=== PATIENT | female | born 1925 | race Caucasian/White ===

== ENCOUNTER 2016-09-21 16:54 | Emergency (ER) | payer MEDICARE, BC ==
[~2016-09-21] VITALS: Ht 160 cm; Wt 70.0 kg
[~2016-09-21 16:54] MED LIST: ALPR0.5T3 PO; AMLO5 PO; ASPI81 PO; OFLO.3%A RIGHT EAR; OYST500T77 PO; PRAV20TA67 PO; TAB-TAB PO; TIMO0.5S29 EACH EYE
[2016-09-21 16:57] VITALS: BP 179/91; PULSE 44; RESP 24; TEMP 97.8; O2SAT 90
[2016-09-21 17:49] LABS: AUTOMATED NEUTROPHIL # 4.4 TH/MM3 (1.8-7.7); BASOPHIL % 0.4 % (0.0-2.0); EOSINOPHIL # 0.2 TH/MM3 (0-0.4); EOSINOPHIL % 2.3 % (0.0-4.0); HEMATOCRIT 39.4 % (35.0-46.0); HEMO FLAGS DIFF FINAL; LYMPH % 17.7 % (9.0-44.0); LYMPHOCYTE # 1.2 TH/MM3 (1.0-4.8); MEAN CORPUSCULAR HEMOGLOBIN 33.1 PG (27.0-34.0); MEAN CORPUSCULAR HGB CONC 33.7 % (32.0-36.0); MONO % 12.1 % (0.0-8.0); NEUT % 67.5 % (16.0-70.0); PLATELET COUNT 216 TH/MM3 (150-450); RED BLOOD COUNT 4.02 MIL/MM3 (4.00-5.30); RED CELL DISTRIBUTION WIDTH 12.5 % (11.6-17.2); WHITE BLOOD COUNT 6.5 TH/MM3 (4.0-11.0)
[2016-09-21 18:05] LABS: ANION GAP 8 MEQ/L (5-15); BICARBONATE 21.9 MEQ/L (21.0-32.0); BLOOD UREA NITROGEN 21 MG/DL (7-18); CHLORIDE 107 MEQ/L (98-107); GLOMERULAR FILTRATION RATE 74 ML/MIN (>89); POTASSIUM 4.1 MEQ/L (3.5-5.1); SODIUM (NA) 137 MEQ/L (136-145)
--- NOTE | 2016-09-21 18:06 | RADRPT ---
EXAM DATE/TIME: 09/21/2016 17:22 [facility] COMPARISON: No previous studies available for comparison. INDICATIONS : Chest pains. MEDICAL HISTORY : Carcinoma, breast. SURGICAL HISTORY : None. ENCOUNTER: Initial ACUITY: 1 week PAIN SCORE: 4/10 LOCATION: Bilateral chest FINDINGS: A single view of the chest demonstrates linear density at the right upper lung related to either scar ring, atelectasis, or thickening of the minor fissure. The lungs are otherwise clear. There is increa sed density over the left base likely related to overlying soft tissues. The heart size is normal. Th ere is a levocurvature of the thoracic spine. CONCLUSION: No acute disease. Brayden Mchugh MD on September 21, 2016 at 18:03 Board Certified Radiologist. This report was verified electronically.
[2016-09-21 18:21] LABS: CREATINE KINASE 71 U/L (26-192)
[2016-09-21] MEDS ORDERED: LORazepam 2 MG/ML VIAL IV PUSH ONE (19:30)
--- NOTE | 2016-09-21 19:31 | PD ---
HPI Chief Complaint: Cardiac Complaint Time Seen by Provider: 19:15 Travel History International Travel<30 days: No Contact w/Intl Traveler<30days: No Traveled to known affect area: No History of Present Illness HPI This is an 89-year-old female with history of atrial fibrillation on xarelto, diltiazem and metoprolol, hypertension, anxiety who presents for evaluation of dyspnea and chest pressure. She reports over the past several months she's been feeling shortness of breath. The shortness of breath is not necessarily reproduced with exertion, she reports that, out of nowhere. In addition she has been having intermittent substernal chest pressure for the past several months. She didn't have an episode today. There are no obvious aggravating or relieving factors for this chest pressure. The pressure does not radiate into the back or into the neck or into the arms. Symptoms have persisted which prompted evaluation today. She was also concerned because her blood pressure has been elevated. Her primary care physician is Dr. velarde. She reports that she saw Dr. Jaimes the delivery rep recently who told her that her dyspnea is not secondary to a pulmonary issue. In addition she reports that she saw Dr. Barnes in the summer of 2016 and believes that she had an echocardiogram and nuclear medicine study which she does not know the results of. She has no other complaints at this time. PFSH Past Medical History Arthritis: Yes Asthma: No Blood Disorders: No Anxiety: Yes Depression: No Heart Rhythm Problems: Yes Cancer: Yes (Breast) Cardiovascular Problems: No High Cholesterol: Yes Chemotherapy: No Congestive Heart Failure: No COPD: No Diabetes: No Diminished Hearing: Yes ([place]) Endocrine: No Glaucoma: Yes Genitourinary: Yes (HEP C ) Hepatitis: Yes (C) Hypertension: Yes Immune Disorder: No Musculoskeletal: No Neurologic: No Psychiatric: No Reproductive: No Respiratory: Yes Radiation Therapy: No Sleep Apnea: No Thyroid Disease: No Menopausal: Yes Past Surgical History Body Medical Devices: LEFT BREAST IMPLANT Other Surgery: Yes (Mastectomy, knee replacement) Social History Alcohol Use: Yes (Daily) Tobacco Use: No Substance Use: No Allergies-Medications (Allergen,Severity, Reaction): Coded Allergies: Sulfa (Verified Allergy, Severe, DYSPNEA, SWELLING, 09/08/15) Reported Meds & Prescriptions Reported Meds & Active Scripts Active Floxin (Ofloxacin) 0.3 % Soln 10 Drop RIGHT EAR DAILY 7 Days Reported Losartan (Losartan Potassium) 25 Mg Tab 25 Mg PO DAILY Sertraline (Sertraline HCl) 25 Mg Tab 25 Mg PO DAILY Vitamin D (Cholecalciferol) 400 Unit Cap 600 Mg Vitamin D (Cholecalciferol) 400 Unit/Ml Drops 400 Units PO DAILY Centrum Silver (Multiple Vitamins W/ Minerals) 1 Tab 1 Tab PO DAILY Metoprolol Succinate ER 24 HR (Metoprolol Succinate) 25 Mg Tab 25 Mg PO DAILY Lovastatin 20 Mg Tab 20 Mg PO DAILY Xarelto (Rivaroxaban) 20 Mg Tab 20 Mg PO DAILY Alprazolam 0.25 Mg Tab 0.25 Mg PO Q6H PRN Timolol Maleate 0.5 % Elenita 1 Drop EACH EYE DAILY Alprazolam 0.5 Mg Tab 0.5 Mg PO BID PRN Pravachol (Pravastatin Sodium) 20 Mg Tab 20 Mg PO DAILY Norvasc (Amlodipine Besylate) 5 Mg Tab 5 Mg PO DAILY Multivitamin (Multivitamins) 1 Tab Tab 1 Tab PO DAILY Calcium 500 Mg Tab 600 Mg PO DAILY Aspirin 81 Mg Tab 81 Mg PO DAILY Review of Systems Except as stated in HPI: all other systems reviewed are Neg Physical Exam Narrative GENERAL: Well-developed well-nourished female in no acute distress SKIN: Warm and dry. HEAD: Atraumatic. Normocephalic. EYES: Pupils equal and round. No scleral icterus. No injection or drainage. ENT: No nasal bleeding or discharge. Mucous membranes pink and moist. NECK: Trachea midline. No JVD. CARDIOVASCULAR: Regular rate and rhythm. No murmur appreciated. RESPIRATORY: No accessory muscle use. Clear to auscultation. Breath sounds equal bilaterally. GASTROINTESTINAL: Abdomen soft, non-tender, nondistended. Hepatic and splenic margins not palpable. MUSCULOSKELETAL: No obvious deformities.No edema. NEUROLOGICAL: Awake and alert. No obvious cranial nerve deficits. Motor grossly within normal limits. Normal speech. Data Data Last Documented VS Vital Signs Date Time Temp Pulse Resp B/P Pulse Ox O2 Delivery O2 Flow Rate FiO2 09/21/16 19:37 76 20 214/85 93 Room Air 09/21/16 16:57 97.8 Orders Electrocardiogram (09/21/16 17:12) Complete Blood Count With Diff (09/21/16 17:12) Basic Metabolic Panel (Bmp) (09/21/16 17:12) Ckmb (Isoenzyme) Profile (09/21/16 17:12) Troponin I (09/21/16 17:12) Chest, Single Ap (09/21/16 17:12) Iv Access Insert/Monitor (09/21/16 17:12) Ecg Monitoring (09/21/16 17:12) Oxygen Administration (09/21/16 17:12) Oximetry (09/21/16 17:12) B-Type Natriuretic Peptide (09/21/16 19:25) Ct Pulmonary Angiogram (09/21/16 19:25) Lorazepam Inj (Ativan Inj) (09/21/16 19:30) Hydralazine Inj (Apresoline Inj) (09/21/16 20:00) Iohexol 350 Inj (Omnipaque 350 Inj) (09/21/16 20:13) Labs Laboratory Tests Test 09/21/16 17:10 White Blood Count 6.5 TH/MM3 Red Blood Count 4.02 MIL/MM3 Hemoglobin 13.3 GM/DL Hematocrit 39.4 % Mean Corpuscular Volume 98.0 FL Mean Corpuscular Hemoglobin 33.1 PG Mean Corpuscular Hemoglobin 33.7 % Concent Red Cell Distribution Width 12.5 % Platelet Count 216 TH/MM3 Mean Platelet Volume 8.2 FL Neutrophils (%) (Auto) 67.5 % Lymphocytes (%) (Auto) 17.7 % Monocytes (%) (Auto) 12.1 % Eosinophils (%) (Auto) 2.3 % Basophils (%) (Auto) 0.4 % Neutrophils # (Auto) 4.4 TH/MM3 Lymphocytes # (Auto) 1.2 TH/MM3 Monocytes # (Auto) 0.8 TH/MM3 Eosinophils # (Auto) 0.2 TH/MM3 Basophils # (Auto) 0.0 TH/MM3 CBC Comment DIFF FINAL Differential Comment Sodium Level 137 MEQ/L Potassium Level 4.1 MEQ/L Chloride Level 107 MEQ/L Carbon Dioxide Level 21.9 MEQ/L Anion Gap 8 MEQ/L Blood Urea Nitrogen 21 MG/DL Creatinine 0.74 MG/DL Estimat Glomerular Filtration 74 ML/MIN Rate Random Glucose 105 MG/DL Calcium Level 8.8 MG/DL Total Creatine Kinase 71 U/L Troponin I LESS THAN 0.02 NG/ML B-Type Natriuretic Peptide 247 PG/ML MDM Medical Decision Making Medical Screen Exam Complete: Yes Emergency Medical Condition: Yes Medical Record Reviewed: Yes Interpretation(s) EKG sinus rhythm with PVCs CT pulmonary angiogram CONCLUSION: 1. No pulmonary loss. 2. Right upper lobe bronchiectasis. 3. Scattered areas of scarring or atelectasis. 4. Gallstones bnp 247 Differential Diagnosis CHF, angina, PE, acute coronary syndrome, pneumothorax, aortic dissection, anxiety, pericarditis, myocarditis Narrative Course 89-year-old female with history of hypertension, atrial fibrillation who presents with dyspnea for the past several months. She reports an episode of chest pressure earlier today, none currently, occasional episodes of chest pressure for the past several months which is not her primary complaint at this time. The patient's initial lab work and x-ray imaging completed in triage are unremarkable. The patient was charted at with a pulse oximetry of 90% in triage , currently 92-93% on room air in hospital bed. We will add on a BNP and CT pulmonary angiogram. 1950: The daughter arrives and provides additional history. The patient had a normal stress test 1-[address] Barnes. She feels that a lot of her symptoms are secondary to anxiety and loneliness. She lives alone and preferred to continue living at home as opposed to going to a sister living facility. She seems to do well with activities of daily living. In addition the patient has a history of bronchiectasis and she uses 2 L of oxygen at night. Given this additional history and is reassuring that she had a normal recent stress test. the patient will be discharged to follow-up with her primary care physician and her biomass production manager. Diagnosis Primary Impression: Dyspnea Qualified Code: R06.00 - Dyspnea, unspecified type Additional Impression: Anxiety Additional Instructions: As discussed, continue to monitor blood pressure and at the bases. Medication as prescribed. Follow-up with primary care physician biomass production manager. Return for any new or worsening symptoms. Med/Other Pt SpecificInfo: No Change to Meds Disposition: 01 DISCHARGE HOME Condition: Stable Cassius Heath Sep 21, 2016 19:31
[2016-09-21 19:37] VITALS: BP 214/85; PULSE 76; RESP 20; O2SAT 93
[2016-09-21] MEDS ORDERED: hydrALAZINE HCL 20 MG/ML VIAL IV PUSH ONE (20:00)
--- NOTE | 2016-09-21 20:10 | RADRPT ---
EXAM DATE/TIME: 09/21/2016 19:49 [facility] COMPARISON: No previous studies available for comparison. INDICATIONS : Chest tightness today. IV CONTRAST: 74 cc Omnipaque 350 (iohexol) IV RADIATION DOSE: 6.23 CTDIvol (mGy) MEDICAL HISTORY : Hypertension. Hepatitis C. Carcinoma, breast. SURGICAL HISTORY : Mastectomy ENCOUNTER: Initial ACUITY: 1 day PAIN SCALE: 5/10 LOCATION: chest TECHNIQUE: Volumetric scanning of the chest was performed using a pulmonary embolism protocol MIP images were re constructed. Using automated exposure control and adjustment of the mA and/or kV according to patien t size, radiation dose was kept as low as reasonably achievable to obtain optimal diagnostic quality images. FINDINGS: PULMONARY ARTERIES: No filling defects are seen in the pulmonary arteries through the segmental level. LUNGS: There is bronchiectasis in the right upper lobe. There some minimal peripheral areas of linear scarri ng or atelectasis present. PLEURAE: There is no pleural thickening or pleural effusion. MEDIASTINUM: There is good visualization of the great vessels of the middle mediastinum. No evidence of mediastin al or hilar adenopathy/mass. MUSCULOSKELETAL: Within normal limits for patient age. MISCELLANEOUS: The visualized upper abdominal organs demonstrate no acute abnormality. Small calcified gallstones ar e present. There is a mild hiatal hernia. There is a left breast implant present. CONCLUSION: 1. No pulmonary loss. 2. Right upper lobe bronchiectasis. 3. Scattered areas of scarring or atelectasis. 4. Gallstones Brayden Mchugh MD on September 21, 2016 at 20:06 Board Certified Radiologist. This report was verified electronically.
[2016-09-21] MEDS ORDERED: IOHEXOL 350 MG/ML 10 ML VIAL (for RAD DIAG) IV ONE (20:13)
--- NOTE | 2016-09-21 20:31 | PD ---
Physical Exam Narrative I, Dr. García, have reviewed the advance practice practitioner's documentation and am in agreement, met with the patient face to face, made the diagnosis, and the medical decision making was done by me. *My assessment and Findings: Anxiety vs. atypical CP 89yo F with anxiety here with chest pressure daily for months. Pt takes xanax daily. She is speaking in complete sentences with no respiratory distress. Pt has recent stress test that was negative and has both city solicitor Dr. Barnes and pulmonologst Dr. Jaimes to follow up with. Labs reviewed, no leukocytosis. Troponin negative. BNP 247. CT angio showed no filling defects. Right upper lob bronchiectasis. CXR showed no acute disease. Pt is very hypertensive. Will give hydralazine 10mg IV. BP improved to 177/72. Pt has good family support and recent cardiac work up. Return precautions given. Data Data Last Documented VS Vital Signs Date Time Temp Pulse Resp B/P Pulse Ox O2 Delivery O2 Flow Rate FiO2 09/21/16 22:13 71 20 177/72 95 09/21/16 19:37 Room Air 09/21/16 16:57 97.8 Orders Electrocardiogram (09/21/16 17:12) Complete Blood Count With Diff (09/21/16 17:12) Basic Metabolic Panel (Bmp) (09/21/16 17:12) Ckmb (Isoenzyme) Profile (09/21/16 17:12) Troponin I (09/21/16 17:12) Chest, Single Ap (09/21/16 17:12) Iv Access Insert/Monitor (09/21/16 17:12) Ecg Monitoring (09/21/16 17:12) Oxygen Administration (09/21/16 17:12) Oximetry (09/21/16 17:12) B-Type Natriuretic Peptide (09/21/16 19:25) Ct Pulmonary Angiogram (09/21/16 19:25) Lorazepam Inj (Ativan Inj) (09/21/16 19:30) Hydralazine Inj (Apresoline Inj) (09/21/16 20:00) Iohexol 350 Inj (Omnipaque 350 Inj) (09/21/16 20:13) Labs Laboratory Tests Test 09/21/16 17:10 White Blood Count 6.5 TH/MM3 Red Blood Count 4.02 MIL/MM3 Hemoglobin 13.3 GM/DL Hematocrit 39.4 % Mean Corpuscular Volume 98.0 FL Mean Corpuscular Hemoglobin 33.1 PG Mean Corpuscular Hemoglobin 33.7 % Concent Red Cell Distribution Width 12.5 % Platelet Count 216 TH/MM3 Mean Platelet Volume 8.2 FL Neutrophils (%) (Auto) 67.5 % Lymphocytes (%) (Auto) 17.7 % Monocytes (%) (Auto) 12.1 % Eosinophils (%) (Auto) 2.3 % Basophils (%) (Auto) 0.4 % Neutrophils # (Auto) 4.4 TH/MM3 Lymphocytes # (Auto) 1.2 TH/MM3 Monocytes # (Auto) 0.8 TH/MM3 Eosinophils # (Auto) 0.2 TH/MM3 Basophils # (Auto) 0.0 TH/MM3 CBC Comment DIFF FINAL Differential Comment Sodium Level 137 MEQ/L Potassium Level 4.1 MEQ/L Chloride Level 107 MEQ/L Carbon Dioxide Level 21.9 MEQ/L Anion Gap 8 MEQ/L Blood Urea Nitrogen 21 MG/DL Creatinine 0.74 MG/DL Estimat Glomerular Filtration 74 ML/MIN Rate Random Glucose 105 MG/DL Calcium Level 8.8 MG/DL Total Creatine Kinase 71 U/L Troponin I LESS THAN 0.02 NG/ML B-Type Natriuretic Peptide 247 PG/ML MDM Supervised Visit with ALEXANDRO: Yes Interpretation(s) EKG: NSR 76bpm. +PVC. +PAC. Normal axis. Danae García DO Sep 21, 2016 20:31
[2016-09-21] MEDS ORDERED: XARE20TA PO (21:13)
[2016-09-21] MEDS ORDERED: SERT25TA83 PO (21:13)
[2016-09-21] MEDS ORDERED: CHOL400D2 PO (21:13)
[2016-09-21] MEDS ORDERED: LOSA25TA PO (21:13)
[2016-09-21] MEDS ORDERED: CENTTAB PO (21:13)
[2016-09-21] MEDS ORDERED: LOVA20TA PO (21:13)
[2016-09-21] MEDS ORDERED: METO25TA6 PO (21:13)
[2016-09-21] MEDS ORDERED: VITA400C28 (21:13)
[2016-09-21] MEDS ORDERED: ALPR0.25 PO (21:13)
[2016-09-21 22:13] VITALS: BP 177/72
--- NOTE | 2016-09-22 17:18 | EKG ---
Date Performed: 09/21/2016 Time Performed: 17:09:26 PTAGE: 89 years EKG: Sinus rhythm WITH OCCASIONAL VENTRICULAR PREMATURE COMPLEXES WITH OCCASIONAL SUPRAVENTRICULAR PREMATURE COMPLEXES BORDERLINE ECG INTERPRETATION BASED ON A DEFAULT AGE OF 40 YEARS PREVIOUS TRACING : 07/23/2014 11.44 PVCs are new since prior tracing, otherwise largely u nchanged. DOCTOR: Javier Rojas Interpretating Date/Time 09/22/2016 17:11:55
== END 2016-09-21 22:10 | disposition home or self-care (01) ==
LOC: NEPC 16:54
DX: R06.00 Dyspnea, unspecified (principal); R07.89 Other chest pain; F41.9 Anxiety disorder, unspecified; I10 Essential (primary) hypertension; I48.91 Unspecified atrial fibrillation
CPT/HCPCS: 71010; 71275; 80048; 82550; 83880; 84484; 85025; 93005; 96374; 96375; 99285; J0360; J2060; Q9967

== ENCOUNTER 2016-11-07 15:48 | Emergency (ER) | payer MEDICARE, BC ==
[~2016-11-07] VITALS: Ht 152.4 cm; Wt 63.0 kg
[~2016-11-07 15:48] MED LIST changes: +ALPR0.25 PO; +CENTTAB PO; +CHOL400D2 PO; +LOSA25TA PO; +LOVA20TA PO; +METO25TA6 PO; +SERT25TA83 PO; +VITA400C28; +XARE20TA PO
[2016-11-07 15:53] VITALS: BP 165/82; PULSE 73; RESP 16; TEMP 98; O2SAT 92
--- NOTE | 2016-11-07 16:37 | PD ---
HPI Chief Complaint: General Weakness Time Seen by Provider: 16:12 Travel History International Travel<30 days: No Contact w/Intl Traveler<30days: No Traveled to known affect area: No History of Present Illness HPI This 89-year-old female is complaining of suspected panic attacks. She has been diagnosed as having panic attacks. She says almost everyday. She has a period in the morning where her lips and her face goes numb. She has been on Xanax for a few couple of years. She has recently been on Zoloft which has been gradually increased to 150 mg daily. It does not seem as if the Zoloft as being very helpful. She has a history of atrial fibrillation and is on diltiazem and Xarelto. She has no history of heart attack or stroke. She says she gets one of these panic attacks about every day for about an hour. She feels like the getting more frequent and lasting longer. She often gets it when she first wakes up. She also says that she has been doing balance exercises at home but it seems like she is getting worse with her balance and was not able to do the exercises now. She has been feeling quite weak for the last 3 or 4 days. 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 Past Medical History Hx Anticoagulant Therapy: Yes (XERELTO) Arthritis: Yes Asthma: No Blood Disorders: No Anxiety: Yes Depression: No Heart Rhythm Problems: Yes Cancer: Yes (Breast) Cardiovascular Problems: No High Cholesterol: Yes Chemotherapy: No Congestive Heart Failure: No COPD: No Diabetes: No Diminished Hearing: Yes ([place]) Endocrine: No Glaucoma: Yes Genitourinary: Yes (HEP C ) Hepatitis: Yes (C) Hypertension: Yes Immune Disorder: No Musculoskeletal: No Neurologic: No Psychiatric: No Reproductive: No Respiratory: Yes Radiation Therapy: No Sleep Apnea: No Thyroid Disease: No ?: Not Menopausal: Yes Past Surgical History Body Medical Devices: LEFT BREAST IMPLANT Eye Surgery: Yes Other Surgery: Yes (Mastectomy, knee replacement) Social History Alcohol Use: Yes (1-2 EVENING) Tobacco Use: No Substance Use: No Allergies-Medications (Allergen,Severity, Reaction): Coded Allergies: Sulfa (Verified Allergy, Severe, DYSPNEA, SWELLING, 11/07/16) Reported Meds & Prescriptions Reported Meds & Active Scripts Active Floxin (Ofloxacin) 0.3 % Soln 10 Drop RIGHT EAR DAILY 7 Days Reported Losartan (Losartan Potassium) 25 Mg Tab 25 Mg PO DAILY Sertraline (Sertraline HCl) 25 Mg Tab 25 Mg PO DAILY Vitamin D (Cholecalciferol) 400 Unit Cap 600 Mg Vitamin D (Cholecalciferol) 400 Unit/Ml Drops 400 Units PO DAILY Centrum Silver (Multiple Vitamins W/ Minerals) 1 Tab 1 Tab PO DAILY Metoprolol Succinate ER 24 HR (Metoprolol Succinate) 25 Mg Tab 25 Mg PO DAILY Lovastatin 20 Mg Tab 20 Mg PO DAILY Xarelto (Rivaroxaban) 20 Mg Tab 20 Mg PO DAILY Alprazolam 0.25 Mg Tab 0.25 Mg PO Q6H PRN Timolol Maleate 0.5 % Elenita 1 Drop EACH EYE DAILY Alprazolam 0.5 Mg Tab 0.5 Mg PO BID PRN Pravachol (Pravastatin Sodium) 20 Mg Tab 20 Mg PO DAILY Norvasc (Amlodipine Besylate) 5 Mg Tab 5 Mg PO DAILY Multivitamin (Multivitamins) 1 Tab Tab 1 Tab PO DAILY Calcium 500 Mg Tab 600 Mg PO DAILY Aspirin 81 Mg Tab 81 Mg PO DAILY Review of Systems General / Constitutional: No: Fever, Chills Eyes: Positive: Blindness, No: Diploplia HENT: Positive: Vertigo, Lightheadedness, No: Headaches Cardiovascular: Positive: Palpitations, Dyspnea on exertion, No: Chest Pain or Discomfort, Syncope Respiratory: Positive: Shortness of Breath, No: Cough Gastrointestinal: No: Vomiting, Diarrhea Genitourinary: No: Frequency Musculoskeletal: No: Myalgias, Arthralgias Skin: No Rash Neurologic: Positive: Weakness, Dizziness Endocrine: No: Heat Intolerance, Cold Intolerance Hematologic/Lymphatic: No: Easy Bruising Physical Exam Narrative GENERAL: Well-developed female SKIN: Focused skin assessment warm/dry. HEAD: Atraumatic. Normocephalic. EYES: Pupils equal and round. No scleral icterus. No injection or drainage. ENT: No nasal bleeding or discharge. Mucous membranes pink and moist. NECK: Trachea midline. No JVD. CARDIOVASCULAR: Regular rate and rhythm. No murmur appreciated. RESPIRATORY: No accessory muscle use. Clear to auscultation. Breath sounds equal bilaterally. GASTROINTESTINAL: Abdomen soft, non-tender, nondistended. Hepatic and splenic margins not palpable. MUSCULOSKELETAL: No obvious deformities. No clubbing. No cyanosis. No edema. NEUROLOGICAL: Awake and alert. No obvious cranial nerve deficits. Motor grossly within normal limits. Normal speech. PSYCHIATRIC: Appropriate mood and affect; insight and judgment normal. Data Data Last Documented VS Vital Signs Date Time Temp Pulse Resp B/P Pulse Ox O2 Delivery O2 Flow Rate FiO2 11/07/16 18:09 75 20 166/68 93 11/07/16 15:53 98.0 Orders Electrocardiogram (11/07/16 16:32) Complete Blood Count With Diff (11/07/16 16:32) Basic Metabolic Panel (Bmp) (11/07/16 16:32) Troponin I (11/07/16 16:32) B-Type Natriuretic Peptide (11/07/16 16:32) Urinalysis - C+S If Indicated (11/07/16 16:32) Magnesium (Mg) (11/07/16 16:32) Ct Brain W/O Iv Contrast(Rout) (11/07/16 16:32) Urine Culture (11/07/16 16:30) Labs Laboratory Tests Test 11/07/16 11/07/16 16:30 16:45 Urine Color YELLOW Urine Turbidity CLEAR Urine pH 6.5 Urine Specific [place] 1.006 Urine Protein NEG mg/dL Urine Glucose (UA) NEG mg/dL Urine Ketones 15 mg/dL Urine Occult Blood TRACE Urine Nitrite POS Urine Bilirubin NEG Urine Leukocyte Esterase MOD Urine RBC 0-3 /hpf Urine WBC 25-49 /hpf Urine Squamous Epithelial 0-5 /hpf Cells Urine Bacteria MANY /hpf Urine Mucus FEW /lpf Microscopic Urinalysis Comment CULTURE INDICATED White Blood Count 5.6 TH/MM3 Red Blood Count 4.16 MIL/MM3 Hemoglobin 13.3 GM/DL Hematocrit 39.6 % Mean Corpuscular Volume 95.0 FL Mean Corpuscular Hemoglobin 32.0 PG Mean Corpuscular Hemoglobin 33.7 % Concent Red Cell Distribution Width 11.6 % Platelet Count 229 TH/MM3 Mean Platelet Volume 7.0 FL Neutrophils (%) (Auto) 68.2 % Lymphocytes (%) (Auto) 16.1 % Monocytes (%) (Auto) 11.5 % Eosinophils (%) (Auto) 3.7 % Basophils (%) (Auto) 0.5 % Neutrophils # (Auto) 3.9 TH/MM3 Lymphocytes # (Auto) 0.9 TH/MM3 Monocytes # (Auto) 0.6 TH/MM3 Eosinophils # (Auto) 0.2 TH/MM3 Basophils # (Auto) 0.0 TH/MM3 CBC Comment DIFF FINAL Differential Comment Sodium Level 134 MEQ/L Potassium Level 3.9 MEQ/L Chloride Level 98 MEQ/L Carbon Dioxide Level 26.1 MEQ/L Anion Gap 10 MEQ/L Blood Urea Nitrogen 9 MG/DL Creatinine 0.58 MG/DL Estimat Glomerular Filtration 98 ML/MIN Rate Random Glucose 94 MG/DL Calcium Level 8.9 MG/DL Magnesium Level 2.1 MG/DL Troponin I LESS THAN 0.02 NG/ML B-Type Natriuretic Peptide 150 PG/ML MDM Medical Decision Making Medical Screen Exam Complete: Yes Emergency Medical Condition: Yes Medical Record Reviewed: Yes Differential Diagnosis Differential includes panic attacks, adverse medication reaction, electrolyte imbalance, subdural Narrative Course CT of the brain is negative. Lab work is unremarkable. She does have significant urinary tract infection which she has had before. She will be Placed on Macrobid. SHe is allergic to sulfa Diagnosis Primary Impression: Urinary tract infection Qualified Code: N30.00 - Acute cystitis without hematuria Scripts Nitrofurantoin Monohydrate Macrocrystals (Macrobid)100 Mg [id number] Mg PO BID 7 Days Ref 0 Prov:Kenji Velasquez MD 11/07/16 Disposition: 01 DISCHARGE HOME Condition: Stable Kenji Velasquez MD Nov 07, 2016 16:37
[2016-11-07 16:46] LABS: BLOOD, URINE TRACE (NEG); GLUCOSE,URINE NEG (NEG); KETONE, URINE 15 mg/dL (NEG); PH, URINE 6.5 (5.0-8.5)
[2016-11-07 16:51] LABS: NITRITE,URINE POS (NEG)
[2016-11-07 16:52] LABS: URINE COLOR YELLOW (YELLW/STRAW)
[2016-11-07 16:53] LABS: BACTERIA, URINE MANY /hpf; COMMENT (UR) CULTURE INDICATED; CULTURE IF INDICATED CULTURE INDICATED; MUCUS URINE FEW /lpf (OCC); RBC, URINE 0-3 /hpf (0-3); SQUAMOUS EPITHELIAL CELL URINE 0-5 /hpf (0-5)
[2016-11-07 16:55] LABS: AUTOMATED NEUTROPHIL # 3.9 TH/MM3 (1.8-7.7); BASOPHIL % 0.5 % (0.0-2.0); EOSINOPHIL # 0.2 TH/MM3 (0-0.4); EOSINOPHIL % 3.7 % (0.0-4.0); HEMATOCRIT 39.6 % (35.0-46.0); HEMO FLAGS DIFF FINAL; LYMPH % 16.1 % (9.0-44.0); LYMPHOCYTE # 0.9 TH/MM3 (1.0-4.8); MEAN CORPUSCULAR HGB CONC 33.7 % (32.0-36.0); MONO % 11.5 % (0.0-8.0); NEUT % 68.2 % (16.0-70.0); PLATELET COUNT 229 TH/MM3 (150-450); RED BLOOD COUNT 4.16 MIL/MM3 (4.00-5.30); RED CELL DISTRIBUTION WIDTH 11.6 % (11.6-17.2); WHITE BLOOD COUNT 5.6 TH/MM3 (4.0-11.0)
[2016-11-07 17:13] VITALS: BP 166/68; PULSE 72; RESP 20; O2SAT 96
--- NOTE | 2016-11-07 17:21 | RADHPO ---
EXAM DATE/TIME: 11/07/2016 16:56 [facility] COMPARISON: No previous studies available for comparison. INDICATIONS : Dizziness and general weakness. RADIATION DOSE: 60.77 CTDIvol (mGy) MEDICAL HISTORY : Hypertension. Hepatitis C. Carcinoma, breast. Glaucoma. SURGICAL HISTORY : None. ENCOUNTER: Initial ACUITY: 1 day PAIN SCALE: 0/10 LOCATION: cranial TECHNIQUE: Multiple contiguous axial images were obtained of the head. Using automated exposure control and adj ustment of the mA and/or kV according to patient size, radiation dose was kept as low as reasonably a chievable to obtain optimal diagnostic quality images. FINDINGS: Noncontrast axial head CT demonstrates the ventricles to be normal in size and configuration with a n ormal sulcal pattern. No acute intracranial hemorrhage, acute cortical infarction, mass or midline sh ift is seen. Posterior fossa structures are unremarkable. Bone windows are unremarkable. CONCLUSION: 1. No evidence of acute intracranial pathology. No masses are identified. Shaq Pino MD on November 07, 2016 at 17:19 Board Certified Radiologist. This report was verified electronically.
[2016-11-07 17:37] LABS: CHLORIDE 98 MEQ/L (98-107); POTASSIUM 3.9 MEQ/L (3.5-5.1); SODIUM (NA) 134 MEQ/L (136-145)
[2016-11-07 17:40] LABS: ANION GAP 10 MEQ/L (5-15); BICARBONATE 26.1 MEQ/L (21.0-32.0); BLOOD UREA NITROGEN 9 MG/DL (7-18); MAGNESIUM 2.1 MG/DL (1.5-2.5)
[2016-11-07 17:43] LABS: GLOMERULAR FILTRATION RATE 98 ML/MIN (>89)
[2016-11-07 18:09] VITALS: BP 166/68; PULSE 75; RESP 20; O2SAT 93
[2016-11-07] MEDS ORDERED: MACR100C2 PO (18:28)
[2016-11-07] MEDS ORDERED: NITROFURANTOIN MONOHYD MACROCR 100 MG CAP PO ONE (18:30)
--- NOTE | 2016-11-08 10:03 | EKG ---
Date Performed: 11/07/2016 Time Performed: 16:45:34 PTAGE: 89 years EKG: Sinus rhythm ST junctional depression is nonspecific Borderline ECG PREVIOUS TRACING : 09/21/2016 17.09 DOCTOR: Dallin Cline Interpretating Date/Time 11/08/2016 10:02:07
== END 2016-11-07 18:58 | disposition home or self-care (01) ==
LOC: PHED 15:48
DX: N30.00 Acute cystitis without hematuria (principal); R42 Dizziness and giddiness; R53.1 Weakness; R00.2 Palpitations; R06.09 Other forms of dyspnea; R06.9 Unspecified abnormalities of breathing; I10 Essential (primary) hypertension; K75.9 Inflammatory liver disease, unspecified; I48.91 Unspecified atrial fibrillation; B96.1 Klebsiella pneumoniae [K. pneumoniae] as the cause of diseases classified elsewhere
CPT/HCPCS: 70450; 80048; 81001; 83735; 83880; 84484; 85025; 87077; 87086; 87186; 93005

== ENCOUNTER 2016-12-09 09:38 | Emergency (ER) | payer MEDICARE, BC ==
[~2016-12-09] VITALS: Ht 152.4 cm; Wt 62.3 kg
[~2016-12-09 09:38] MED LIST changes: +MACR100C2 PO
[2016-12-09 09:45] VITALS: BP 174/71; PULSE 81; RESP 16; TEMP 98.1; O2SAT 94
[2016-12-09] MEDS ORDERED: LORA1TAB12 PO (10:09)
[2016-12-09] MEDS ORDERED: ZOLO25TA PO (10:09)
[2016-12-09] MEDS ORDERED: DILT300C3 PO (10:09)
[2016-12-09] MEDS ORDERED: hydrOXYzine HCL 25 MG TAB PO ONE (10:15)
[2016-12-09 10:24] LABS: AUTOMATED NEUTROPHIL # 4.2 TH/MM3 (1.8-7.7); BASOPHIL # 0.1 TH/MM3 (0-0.2); EOSINOPHIL # 0.1 TH/MM3 (0-0.4); EOSINOPHIL % 1.7 % (0.0-4.0); HEMATOCRIT 38.9 % (35.0-46.0); HEMO FLAGS DIFF FINAL; LYMPH % 11.6 % (9.0-44.0); LYMPHOCYTE # 0.7 TH/MM3 (1.0-4.8); MEAN CELL VOLUME 93.9 FL (80.0-100.0); MEAN CORPUSCULAR HEMOGLOBIN 32.5 PG (27.0-34.0); MEAN CORPUSCULAR HGB CONC 34.6 % (32.0-36.0); MONO % 11.3 % (0.0-8.0); NEUT % 74.4 % (16.0-70.0); PLATELET COUNT 205 TH/MM3 (150-450); RED BLOOD COUNT 4.14 MIL/MM3 (4.00-5.30); WHITE BLOOD COUNT 5.8 TH/MM3 (4.0-11.0)
--- NOTE | 2016-12-09 10:33 | RADHPO ---
EXAM DATE/TIME: 12/09/2016 10:15 [facility] COMPARISON: CHEST PA & LAT, July 23, 2014, 12:10. INDICATIONS : Short of breath MEDICAL HISTORY : Carcinoma, breast. SURGICAL HISTORY : None. ENCOUNTER: Initial ACUITY: 1 day PAIN SCORE: 0/10 LOCATION: Bilateral chest FINDINGS: PA and lateral views of the chest demonstrate the lungs to be symmetrically aerated without evidence of mass, infiltrate or effusion. There is mild stable scarring. The cardiomediastinal contours are u nremarkable. Osseous structures are intact. There are overlying electrocardiogram leads. CONCLUSION: Stable appearance with no acute cardiopulmonary disease. Shaheen Gilliam MD on December 09, 2016 at 10:30 Board Certified Radiologist. This report was verified electronically.
[2016-12-09 10:37] LABS: CHLORIDE 94 MEQ/L (98-107); POTASSIUM 3.8 MEQ/L (3.5-5.1); SODIUM (NA) 129 MEQ/L (136-145)
[2016-12-09 10:40] LABS: ANION GAP 11 MEQ/L (5-15); BICARBONATE 23.9 MEQ/L (21.0-32.0); BLOOD UREA NITROGEN 8 MG/DL (7-18)
[2016-12-09 10:43] LABS: ALT (GPT) 25 U/L (10-53)
[2016-12-09 10:44] LABS: AST (GOT) 23 U/L (15-37); GLOMERULAR FILTRATION RATE 109 ML/MIN (>89)
[2016-12-09 10:45] LABS: TOTAL BILIRUBIN ADULT 0.6 MG/DL (0.2-1.0)
[2016-12-09 10:46] LABS: ALKALINE PHOSPHATASE 48 U/L (45-117)
[2016-12-09 10:58] VITALS: BP 165/74; PULSE 69; RESP 18; O2SAT 97
[2016-12-09] MEDS ORDERED: SODIUM CHLORID 0.9% 500 ML INJ 500 ML IV ONE (11:00)
[2016-12-09] MEDS ORDERED: VIST25CA PO (11:32)
--- NOTE | 2016-12-09 11:33 | PD ---
HPI Chief Complaint: Anxiety Time Seen by Provider: 09:58 Travel History International Travel<30 days: No Contact w/Intl Traveler<30days: No Traveled to known affect area: No History of Present Illness HPI Patient is an 89-year-old female with history of anxiety and panic attacks who comes in complaining of a panic attack. She says that she woke up feeling short of breath and dizzy, which is typical of her panic attacks. She is taking lorazepam for the panic attacks, which is recently switched from Xanax. She says that it usually helps for about 4 hours, but she was told to take it every 6 hours. She says that her anxiety started about 2 months ago when she started losing her eyesight. She was taking Xanax for this, but her doctor is been trying to switch her to different medications, which she says are not helping as much. She does report feeling tired and that she is not being social with her friends like she used to. She says that nothing is really different today regarding her panic attacks. PFSH Past Medical History Hx Anticoagulant Therapy: Yes (XERELTO) Arthritis: Yes Asthma: No Blood Disorders: No Anxiety: Yes Depression: No Heart Rhythm Problems: Yes Cancer: Yes (Breast) Cardiovascular Problems: No High Cholesterol: Yes Chemotherapy: No Congestive Heart Failure: No COPD: No Diabetes: No Diminished Hearing: Yes ([place]) Endocrine: No Glaucoma: Yes Genitourinary: Yes (HEP C ) Hepatitis: Yes (C) Hypertension: Yes Immune Disorder: No Musculoskeletal: No Neurologic: No Psychiatric: No Reproductive: No Respiratory: Yes Radiation Therapy: No Sleep Apnea: No Thyroid Disease: No Influenza Vaccination: Yes ?: Not Menopausal: Yes Past Surgical History Body Medical Devices: LEFT BREAST IMPLANT Eye Surgery: Yes Other Surgery: Yes (Mastectomy, knee replacement) Social History Alcohol Use: Yes (1-2 EVENING) Tobacco Use: No Substance Use: No Allergies-Medications (Allergen,Severity, Reaction): Coded Allergies: Sulfa (Verified Allergy, Severe, DYSPNEA, SWELLING, 12/09/16) Reported Meds & Prescriptions Reported Meds & Active Scripts Active Vistaril (Hydroxyzine Pamoate) 25 Mg Cap 25 Mg PO Q6H PRN Reported Zoloft (Sertraline HCl) 25 Mg Tab 25 Mg PO DAILY Diltiazem CD 24 HR 300 Mg Caper 300 Mg PO DAILY Lorazepam 1 Mg Tab 0.5 Mg PO Q6HR PRN Losartan (Losartan Potassium) 25 Mg Tab 25 Mg PO DAILY Vitamin D (Cholecalciferol) 400 Unit/Ml Drops 400 Units PO DAILY Centrum Silver (Multiple Vitamins W/ Minerals) 1 Tab 1 Tab PO DAILY Lovastatin 20 Mg Tab 20 Mg PO DAILY Xarelto (Rivaroxaban) 20 Mg Tab 15 Mg PO DAILY Review of Systems Except as stated in HPI: all other systems reviewed are Neg General / Constitutional: No: Fever, Chills Eyes: No: Blurred Vision HENT: No: Headaches, Lightheadedness Cardiovascular: No: Chest Pain or Discomfort Respiratory: Positive: Shortness of Breath Gastrointestinal: No: Nausea, Vomiting Musculoskeletal: No: Myalgias Skin: No Rash, No Change in Pigmentation Neurologic: Positive: Dizziness, No: Weakness Psychiatric: Positive: Anxiety Physical Exam Narrative GENERAL: Awake and alert, in no acute distress. SKIN: Focused skin assessment warm/dry. HEAD: Atraumatic. Normocephalic. EYES: Pupils equal and round. No scleral icterus. Extraocular movements intact. ENT: Mucous membranes pink and moist. NECK: Trachea midline. No JVD. CARDIOVASCULAR: Regular rate and rhythm. No murmur appreciated. RESPIRATORY: No accessory muscle use. Clear to auscultation. Breath sounds equal bilaterally. GASTROINTESTINAL: Abdomen soft, non-tender, nondistended. MUSCULOSKELETAL: No obvious deformities. No clubbing. No cyanosis. No edema. NEUROLOGICAL: Awake and alert. No obvious cranial nerve deficits. Motor grossly within normal limits. Normal speech. PSYCHIATRIC: Appropriate mood and affect; insight and judgment normal. Data Data Last Documented VS Vital Signs Date Time Temp Pulse Resp B/P Pulse Ox O2 Delivery O2 Flow Rate FiO2 12/09/16 10:58 69 18 165/74 97 Room Air 12/09/16 09:45 98.1 Orders Complete Blood Count With Diff (12/09/16 10:11) Comprehensive Metabolic Panel (12/09/16 10:11) Chest, Pa & Lat (12/09/16 ) Hydroxyzine Hcl (Atarax) (12/09/16 10:15) Sodium Chlorid 0.9% 500 Ml Inj (Ns 500 M (12/09/16 11:00) Labs Laboratory Tests Test 12/09/16 10:18 White Blood Count 5.8 TH/MM3 Red Blood Count 4.14 MIL/MM3 Hemoglobin 13.4 GM/DL Hematocrit 38.9 % Mean Corpuscular Volume 93.9 FL Mean Corpuscular Hemoglobin 32.5 PG Mean Corpuscular Hemoglobin 34.6 % Concent Red Cell Distribution Width 12.0 % Platelet Count 205 TH/MM3 Mean Platelet Volume 7.4 FL Neutrophils (%) (Auto) 74.4 % Lymphocytes (%) (Auto) 11.6 % Monocytes (%) (Auto) 11.3 % Eosinophils (%) (Auto) 1.7 % Basophils (%) (Auto) 1.0 % Neutrophils # (Auto) 4.2 TH/MM3 Lymphocytes # (Auto) 0.7 TH/MM3 Monocytes # (Auto) 0.6 TH/MM3 Eosinophils # (Auto) 0.1 TH/MM3 Basophils # (Auto) 0.1 TH/MM3 CBC Comment DIFF FINAL Differential Comment Sodium Level 129 MEQ/L Potassium Level 3.8 MEQ/L Chloride Level 94 MEQ/L Carbon Dioxide Level 23.9 MEQ/L Anion Gap 11 MEQ/L Blood Urea Nitrogen 8 MG/DL Creatinine 0.53 MG/DL Estimat Glomerular Filtration 109 ML/MIN Rate Random Glucose 117 MG/DL Calcium Level 8.8 MG/DL Total Bilirubin 0.6 MG/DL Aspartate Amino Transf 23 U/L (AST/SGOT) Alanine Aminotransferase 25 U/L (ALT/SGPT) Alkaline Phosphatase 48 U/L Total Protein 7.2 GM/DL Albumin 3.8 GM/DL [facility] Medical Decision Making Medical Screen Exam Complete: Yes Emergency Medical Condition: Yes Medical Record Reviewed: Yes Differential Diagnosis Anxiety attack versus electrolyte abnormality versus pneumonia Narrative Course Patient is an 89-year-old female comes in complaining of shortness of breath which is typical of her panic attacks. Exam shows no acute abnormalities. IV established, labs sent. Labs show a sodium of 129. Given bolus of 500 ML's of normal saline. Chest x-ray shows no acute abnormalities. Patient advised to increase her salt intake. Given Atarax, which she says has helped her. We'll give her prescription to take as needed. I discussed with the patient and her daughter that benzodiazepines are sedating and might not be the best medication for her as they can cause her to fall and hit her head. I also discussed that they are very addicting. Patient advised to speak with her doctor and perhaps see a psychiatrist regarding her frequent panic attacks and benzodiazepine use. Advised to return to the ED as needed for any worsening symptoms. Patient would like to go home. Diagnosis Primary Impression: Anxiety Patient Instructions: Anxiety (ED), General Instructions Additional Instructions: Follow up with your doctors. Be careful taking anxiety medications as they can be sedating. Return to the ED as needed for any worsening symptoms. Scripts Hydroxyzine Pamoate (Vistaril)25 Mg Cap25 Mg PO Q6H PRN (ANXIETY) #15 CAP Ref 0 Prov:Conchis Santillan MD 12/09/16 Disposition: 01 DISCHARGE HOME Condition: Stable Conchis Santillan MD December 09, 2016 11:33
== END 2016-12-09 11:50 | disposition home or self-care (01) ==
LOC: PHED 09:38
DX: F41.9 Anxiety disorder, unspecified (principal); F41.0 Panic disorder [episodic paroxysmal anxiety]; Z79.01 Long term (current) use of anticoagulants; I10 Essential (primary) hypertension
CPT/HCPCS: 71020; 80053; 85025; 99283; J7040

== ENCOUNTER 2017-04-11 12:26 | Emergency (ER) | payer MEDICARE, BC ==
[~2017-04-11] VITALS: Ht 152.4 cm; Wt 61.0 kg
[~2017-04-11 12:26] MED LIST changes: -ALPR0.25 PO; -ALPR0.5T3 PO; -AMLO5 PO; -ASPI81 PO; +DILT300C3 PO; +LORA1TAB12 PO; -MACR100C2 PO; -METO25TA6 PO; -OFLO.3%A RIGHT EAR; -OYST500T77 PO; -PRAV20TA67 PO; -SERT25TA83 PO; -TAB-TAB PO; -TIMO0.5S29 EACH EYE; +VIST25CA PO; -VITA400C28; +ZOLO25TA PO
[2017-04-11 12:34] VITALS: BP 153/80; PULSE 68; RESP 18; TEMP 97.7; O2SAT 94
--- NOTE | 2017-04-11 12:47 | PD ---
HPI . Head injury Chief Complaint: Fall Time Seen by Provider: 12:43 Travel History International Travel<30 days: No Contact w/Intl Traveler<30days: No History of Present Illness HPI This patient presents for evaluation of an injury to her head. She states that she tripped and fell and landed on the back of her head around midmorning. There was no loss of consciousness. She has been acting normally since the fall. She denies neck pain. She is legally blind. She denies any nausea or vomiting. She is on Xarelto. PFSH Past Medical History Hx Anticoagulant Therapy: Yes (XERELTO) Arthritis: Yes Asthma: No Blood Disorders: No Anxiety: Yes Depression: No Heart Rhythm Problems: Yes Cancer: Yes (Breast) Cardiovascular Problems: No High Cholesterol: Yes Chemotherapy: No Congestive Heart Failure: No COPD: No Diabetes: No Diminished Hearing: Yes ([place]) Endocrine: No Glaucoma: Yes Genitourinary: Yes (HEP C ) Hepatitis: Yes (C) Hypertension: Yes Immune Disorder: No Musculoskeletal: No Neurologic: No Psychiatric: No Reproductive: No Respiratory: Yes Radiation Therapy: No Sleep Apnea: No Thyroid Disease: No Menopausal: Yes Past Surgical History Body Medical Devices: LEFT BREAST IMPLANT Eye Surgery: Yes Other Surgery: Yes (Mastectomy, knee replacement) Social History Alcohol Use: Yes (1-2 EVENING) Tobacco Use: No Substance Use: No Allergies-Medications (Allergen,Severity, Reaction): Coded Allergies: Sulfa (Sulfonamide Antibiotics) (Unverified Allergy, Severe, Swelling, SOB , 04/11/17) Reported Meds & Prescriptions Reported Meds & Active Scripts Active Reported Calcium 600+D 200 (Calcium Carbonate-Vitamin D) 600-200 Mg-Unit Tab 1 Tab PO BID Centrum Silver (Multiple Vitamins W/ Minerals) 400 Mcg-250 Mcg Chw 1 Tab PO DAILY Metoprolol Succinate ER 24 HR (Metoprolol Succinate) 100 Mg Tab 100 Mg PO DAILY Latanoprost Opth Drops (Latanoprost) 0.005% Drops 1 Drop EACH EYE HS Refrigerate until opened. Timolol Opth Drops 0.5 % Soln 1 Drop EACH EYE BID Quetiapine (Quetiapine Fumarate) 25 Mg Tab 25 Mg PO BID Zoloft (Sertraline HCl) 25 Mg Tab 100 Mg PO DAILY Lorazepam 1 Mg Tab 0.5 Mg PO Q6HR PRN Losartan (Losartan Potassium) 25 Mg Tab 50 Mg PO DAILY Lovastatin 20 Mg Tab 20 Mg PO DAILY Xarelto (Rivaroxaban) 20 Mg Tab 15 Mg PO DAILY Review of Systems Except as stated in HPI: all other systems reviewed are Neg Eyes: Positive: Blindness HENT: No: Headaches, Lightheadedness, Neck Pain Physical Exam Narrative GENERAL: Awake and alert and in no acute distress. SKIN: Warm and dry. HEAD: Normocephalic. Contusion on the vertex of her scalp. EYES: Pupils equal and round. NECK: Trachea midline. C-spine is nontender. Full range of motion. CARDIOVASCULAR: Regular rate and rhythm. RESPIRATORY: No accessory muscle use. MUSCULOSKELETAL: No obvious deformities. No edema. NEUROLOGICAL: Awake and alert. No obvious cranial nerve deficits. Motor grossly within normal limits. Normal speech. PSYCHIATRIC: Appropriate mood and affect; insight and judgment normal. Data Data Last Documented VS Vital Signs Date Time Temp Pulse Resp B/P (MAP) Pulse Ox O2 Delivery O2 Flow Rate FiO2 04/11/17 14:25 62 18 194/89 (124) 93 Room Air 04/11/17 12:[address] Brain W/O Iv Contrast(Rout) (04/11/17 12:43) [facility] Medical Decision Making Medical Screen Exam Complete: Yes Emergency Medical Condition: Yes Differential Diagnosis My differential diagnosis of head trauma includes but is not limited to scalp contusion, concussion, intracerebral hemorrhage. Narrative Course This patient presents for evaluation of a head injury. She is on Xarelto. Last Impressions Head CT 04/11/17 1243 Signed Impressions: Service Date/Time: Tuesday, April 11, 2017 13:42 - CONCLUSION: 1. High occipital scalp hematoma without evidence of skull fracture. 2. No acute findings in the brain. Jeremías Odell MD Diagnosis Primary Impression: Scalp contusion Qualified Codes: S00.03XA - Contusion of scalp, initial encounter Patient Instructions: Scalp Contusion in Adults (ED) Med/Other Pt SpecificInfo: Prescription(s) given Scripts Tramadol (Ultram) 50 Mg Tab 50 MG PO Q4H Y for PAIN, #12 TAB 0 Refills Prov: Charlee Prabhakar MD 04/11/17 Disposition: 01 DISCHARGE HOME Condition: Stable Charlee Prabhakar MD Apr 11, 2017 12:47
[2017-04-11] MEDS ORDERED: CENTCHW3 PO (12:59)
[2017-04-11] MEDS ORDERED: QUET1TAB7 PO (12:59)
[2017-04-11] MEDS ORDERED: TIMO0.5S30 EACH EYE (12:59)
[2017-04-11] MEDS ORDERED: CALCTAB19 PO (12:59)
[2017-04-11] MEDS ORDERED: LATA0.002 EACH EYE (12:59)
[2017-04-11] MEDS ORDERED: METO100T9 PO (12:59)
[2017-04-11 14:25] VITALS: BP 194/89; PULSE 62; RESP 18; O2SAT 93
--- NOTE | 2017-04-11 14:32 | RADRPT ---
EXAM DATE/TIME: 04/11/2017 13:42 [facility] COMPARISON: CT BRAIN W/O CONTRAST, November 07, 2016, 16:56. INDICATIONS : Trauma. Fell and hit back of head on tile floor. RADIATION DOSE: 64.93 CTDIvol (mGy) MEDICAL HISTORY : Hepatitis C. Hypertension. SURGICAL HISTORY : Mastectomy. ENCOUNTER: Initial ACUITY: 1 day PAIN SCALE: 6/10 LOCATION: cranial TECHNIQUE: Multiple contiguous axial images were obtained of the head. Using automated exposure control and adj ustment of the mA and/or kV according to patient size, radiation dose was kept as low as reasonably a chievable to obtain optimal diagnostic quality images. DICOM format image data is available electro nically for review and comparison. FINDINGS: CEREBRUM: The ventricles are normal for age. No evidence of midline shift, mass lesion, hemorrhage or acute in farction. No extra-axial fluid collections are seen. POSTERIOR FOSSA: The cerebellum and brainstem are intact. The 4th ventricle is midline. The cerebellopontine angle i s unremarkable. EXTRACRANIAL: The visualized portion of the orbits is intact. SKULL: Prominent posterior occipital high convexity scalp hematoma measuring up to 1.3 cm. No radiopaque fo reign bodies. The calvaria is intact. No evidence of skull fracture. CONCLUSION: 1. High occipital scalp hematoma without evidence of skull fracture. 2. No acute findings in the brain. Jeremías Odell MD on April 11, 2017 at 14:28 Board Certified Radiologist. This report was verified electronically.
[2017-04-11] MEDS ORDERED: ULTR50TA5 PO (14:45)
== END 2017-04-11 15:00 | disposition home or self-care (01) ==
LOC: PHED 12:26
DX: S00.03XA Contusion of scalp, initial encounter (principal); H54.8 Legal blindness, as defined in USA; W01.10XA Fall on same level from slipping, tripping and stumbling with subsequent striking against unspecified object, initial encounter
CPT/HCPCS: 70450